=== PATIENT | female | born 1985 | race African-American/Black ===

== ENCOUNTER 2019-05-29 09:26 | Emergency (ER) | payer OTHER ==
[~2019-05-29] VITALS: Ht 165.1 cm; Wt 138.3 kg
[~2019-05-29 09:26] MED LIST: ACET-704 PO; DICY10CA53 PO; OMEP40CA5 PO; ONDA8TAB12 PO; TRAM-48 PO
[2019-05-29] MEDS ORDERED: ONDANSETRON PF 4 MG/2 ML VIAL. IV ONE (09:45)
--- NOTE | 2019-05-29 09:46 | PHYS DOC ---
Past Medical History Past Medical History: Diverticulosis Additional Past Medical Histor: RECTAL FISSURES, KIDNEY STONES, HEMORRHOIDS Past Surgical History: Additional Past Surgical Histo: dental Alcohol Use: None Drug Use: None Adult General Chief Complaint Chief Complaint: ABDOMINAL PAIN HPI HPI Patient is a 33 year old female presented to ER today for evaluation of 2 day history of nausea and vomiting, she started having severe epigastric chest pain when she woke up this morning. Patient denies any fever, no chest pain, no headache, no trouble breathing. Patient denies any vaginal bleeding or discharge. She had history of tubal ligation. ALL OTHER REVIEW OF SYSTEMS ARE NEGATIVE UNLESS OTHERWISE NOTED IN HPI Review of Systems Review of Systems SEE ABOVE Current Medications Current Medications Current Medications Medications (Trade) Dose Ordered Sig/Nikos Start Time Stop Time Status Last Admin Dose Admin Diphenhydramine HCl (Benadryl) 25 mg 1X ONCE 05/29/19 11:15 05/29/19 11:16 DC 05/29/19 11:08 25 MG Famotidine (Pepcid Vial) 20 mg 1X ONCE 05/29/19 10:45 05/29/19 10:48 DC 05/29/19 10:56 20 MG Fentanyl Citrate (Fentanyl 2ml Vial) 50 mcg 1X ONCE 05/29/19 13:00 05/29/19 13:01 DC 05/29/19 13:03 50 MCG Info (CONTRAST GIVEN -- Rx MONITORING) 1 each PRN DAILY PRN 05/29/19 10:45 05/29/19 13:40 DC Iohexol (Omnipaque 300 Mg/ml) 75 ml 1X ONCE 05/29/19 10:45 05/29/19 10:46 DC 05/29/19 11:35 75 ML Methylprednisolone Sodium Succinate (SOLU-Medrol 125MG VIAL) 125 mg 1X ONCE 05/29/19 11:15 05/29/19 11:16 DC 05/29/19 11:12 125 MG Morphine Sulfate (Morphine Sulfate) 4 mg 1X ONCE 05/29/19 10:45 05/29/19 10:48 DC 05/29/19 10:57 4 MG Multi-Ingredient Mouthwash/Gargle (Gi Cocktail) 20 ml 1X ONCE 05/29/19 13:00 05/29/19 13:01 DC 05/29/19 13:03 20 ML Ondansetron HCl (Zofran) 8 mg 1X ONCE 05/29/19 09:45 05/29/19 09:46 DC 05/29/19 10:20 8 MG Allergies Allergies Allergies Coded Allergies Type Severity Reaction Last Updated Verified Penicillins Allergy Intermediate Hives 04/22/16 Yes morphine Allergy Intermediate HIVES/ITCHING 05/29/19 Yes butorphanol Adverse Reaction Mild Anxiety 05/29/19 Yes metoclopramide Adverse Reaction Mild Anxiety 05/29/19 Yes tramadol Adverse Reaction Mild 05/29/19 Yes Physical Exam Physical Exam SEE ABOVE Constitutional: Well developed, well nourished, no acute distress, non-toxic appearance. [] HENT: Normocephalic, atraumatic, bilateral external ears normal, oropharynx moist, no oral exudates, nose normal. [] Eyes: PERRLA, EOMI, conjunctiva normal, no discharge. [] Neck: Normal range of motion, no tenderness, supple, no stridor. [] Cardiovascular:Heart rate regular rhythm, no murmur [] Lungs & Thorax: Bilateral breath sounds clear to auscultation [] Abdomen: Bowel sounds normal, soft, There is tenderness to palpation in epigastric area, no masses, no pulsatile masses. [] Skin: Warm, dry, no erythema, no rash. [] Back: No tenderness, no CVA tenderness. [] Extremities: No tenderness, no cyanosis, no clubbing, ROM intact, no edema. [] Neurologic: Alert and oriented X 3, normal motor function, normal sensory function, no focal deficits noted. [] Psychologic: Affect normal, judgement normal, mood normal. [] Current Patient Data Vital Signs Vital Signs Date Time Temp Pulse Resp B/P (MAP) Pulse Ox O2 Delivery O2 Flow Rate FiO2 05/29/19 13:17 68 13 119/76 (90) 93 Room Air 05/29/19 09:34 98.6 98.6 Lab Values Laboratory Tests Test 05/29/19 09:56 05/29/19 10:45 Urine Collection Type Void Urine Color Yellow Urine Clarity Clear Urine pH 7.0 Urine Specific [place] 1.020 Urine Protein Negative mg/dL (NEG-TRACE) Urine Glucose (UA) Negative mg/dL (NEG) Urine Ketones (Stick) Negative mg/dL (NEG) Urine Blood Negative (NEG) Urine Nitrite Negative (NEG) Urine Bilirubin Negative (NEG) Urine Urobilinogen Dipstick 0.2 mg/dL (0.2 mg/dL) Urine Leukocyte Esterase Negative (NEG) Urine RBC 0 /HPF (0-2) Urine WBC 0 /HPF (0-4) Urine Squamous Epithelial Cells Few /LPF Urine Bacteria 0 /HPF (0-FEW) POC Urine HCG, Qualitative Hcg negative (Negative) Sodium Level 140 mmol/L (136-145) Potassium Level 3.9 mmol/L (3.5-5.1) Chloride Level 103 mmol/L (98-107) Carbon Dioxide Level 26 mmol/L (21-32) Anion Gap 11 (6-14) Blood Urea Nitrogen 10 mg/dL (7-20) Creatinine 1.0 mg/dL (0.6-1.0) Estimated GFR (Cockcroft-Gault) 78.2 BUN/Creatinine Ratio 10 (6-20) Glucose Level 150 mg/dL (70-99) H Calcium Level 8.8 mg/dL (8.5-10.1) Total Bilirubin 0.2 mg/dL (0.2-1.0) Aspartate Amino Transferase (AST) 14 U/L (15-37) L Alanine Aminotransferase (ALT) 23 U/L (14-59) Alkaline Phosphatase 78 U/L (46-116) Total Protein 7.6 g/dL (6.4-8.2) Albumin 3.4 g/dL (3.4-5.0) Albumin/Globulin Ratio 0.8 (1.0-1.7) L Lipase 90 U/L (73-393) White Blood Count 10.1 x10^3/uL (4.0-11.0) Red Blood Count 4.17 x10^6/uL (3.50-5.40) Hemoglobin 11.7 g/dL (12.0-15.5) L Hematocrit 35.7 % (36.0-47.0) L Mean Corpuscular Volume 86 fL (79-100) Mean Corpuscular Hemoglobin 28 pg (25-35) Mean Corpuscular Hemoglobin Concent 33 g/dL (31-37) Red Cell Distribution Width 14.3 % (11.5-14.5) Platelet Count 487 x10^3/uL (140-400) H Neutrophils (%) (Auto) 79 % (31-73) H Lymphocytes (%) (Auto) 16 % (24-48) L Monocytes (%) (Auto) 4 % (0-9) Eosinophils (%) (Auto) 0 % (0-3) Basophils (%) (Auto) 1 % (0-3) Neutrophils # (Auto) 8.0 x10^3/uL (1.8-7.7) H Lymphocytes # (Auto) 1.6 x10^3/uL (1.0-4.8) Monocytes # (Auto) 0.4 x10^3/uL (0.0-1.1) Eosinophils # (Auto) 0.0 x10^3/uL (0.0-0.7) Basophils # (Auto) 0.1 x10^3/uL (0.0-0.2) Laboratory Tests 05/29/19 10:45 Laboratory Tests 05/29/19 09:56 EKG EKG [] Radiology/Procedures Radiology/Procedures [][facility] [address] [place] [address] IMAGING REPORT Signed PATIENT: DRAGAN MCKENZIE ACCOUNT: [id number] : 1985 LOCATION: ER AGE: 33 SEX: F EXAM STATUS: REG ER ORD. PHYSICIAN: KEVEN COMER DO REASON: abdominal pain PROCEDURE: CT ABD PELV W/ IV CONTRST ONLY EXAM: Abdomen and pelvis CT with intravenous contrast. HISTORY: Pain. TECHNIQUE: Computed tomographic images of the abdomen and pelvis were obtained following the administration of 75 cc Omnipaque 300 intravenous contrast. Multiplanar reformatting was performed. *One or more of the following individualized dose reduction techniques were utilized for this examination: 1. Automated exposure control. 2. Adjustment of the mA and/or kV according to patient size. 3. Use of iterative reconstruction technique. COMPARISON: 08/05/2015. FINDINGS: Evaluation of the lower thorax demonstrates nonspecific groundglass opacity within the left lung base, the appearance of which favors atelectasis rather than interstitial infiltrate. There is mild hepatomegaly and hepatic steatosis. No focal hepatic lesion is seen. The gallbladder is surgically absent. The pancreas, spleen, adrenal glands and kidneys are unremarkable. There is no appendicitis. There is no bowel obstruction. There is no abnormal bowel wall thickening. The urinary bladder is unremarkable. There are bilateral ovarian follicles. There is no lymphadenopathy. There is no suspicious osseous lesion. There is scarring within the lower ventral abdomen, likely due to a section. IMPRESSION: 1. No acute abdominal or pelvic finding. 2. Mild hepatomegaly and hepatic steatosis. 3. Nonspecific groundglass opacity within the left lung base, the appearance of which favors atelectasis rather than interstitial infiltrate. Electronically signed by: Sheyla Judd MD (05/29/2019 11:53 AM) [place] [id number] DICTATED and SIGNED BY: SHEYLA JUDD MD DATE: 05/29/19 2679 Course & Med Decision Making Course & Med Decision Making Pertinent Labs and Imaging studies reviewed. (See chart for details) [] Dragon Disclaimer Dragon Disclaimer This electronic medical record was generated, in whole or in part, using a voice recognition dictation system. Departure Departure Impression: Primary Impression: Abdominal pain Additional Impressions: Acute gastritis Fatty liver Disposition: HOME, SELF-CARE Condition: STABLE Referrals: ROSA HANCOCK MD (PCP) please follow up with your family doctor next week for a referral to a GI specialist. Patient Instructions: Abdominal Migraine, Gastritis, Adult Scripts Sucralfate (CARAFATE) 1 Gm Tablet 1 TAB PO QID for 14 Days, #56 TAB Prov: KEVEN COMER DO 05/29/19 Omeprazole Magnesium (PRILOSEC OTC) 20 Mg Tablet.dr 40 MG PO DAILY for 30 Days, #60 TAB Prov: KEVEN COMER DO 05/29/19 Problem Qualifiers KEVEN COMER DO May 29, 2019 09:46
[2019-05-29 10:07] LABS: BILIRUBIN,URINE NEGATIVE (NEG); COLOR,URINE YELLOW; NITRITE,URINE NEGATIVE (NEG); PROTEIN,URINE NEGATIVE (NEG-TRACE); UROBILINOGEN,URINE 0.2 mg/dL (0.2 mg/dL)
[2019-05-29 10:14] LABS: BACTERIA,URINE 0 /HPF (0-FEW); RBC,URINE 0 /HPF (0-2); SQUAMOUS EPITHELIAL CELL,UR FEW /LPF; WBC,URINE 0 /HPF (0-4)
[2019-05-29 10:15] LABS: CALCIUM 8.8 mg/dL (8.5-10.1); GFR 78.2; POTASSIUM 3.9 mmol/L (3.5-5.1)
[2019-05-29 10:16] LABS: CLARITY,URINE CLEAR
[2019-05-29 10:21] LABS: ALBUMIN 3.4 g/dL (3.4-5.0); ALBUMIN/GLOBULIN RATIO 0.8 (1.0-1.7); TOTAL BILIRUBIN 0.2 mg/dL (0.2-1.0); TOTAL PROTEIN 7.6 g/dL (6.4-8.2)
[2019-05-29] MEDS ORDERED: MORPHINE SULFATE 4 MG/ML VIAL. IV ONE (10:45)
[2019-05-29] MEDS ORDERED: IOHEXOL 300 MG/ML 100ML VIAL. IV ONE (10:45)
[2019-05-29] MEDS ORDERED: FAMOTIDINE 20 MG/2 ML VIAL IVP ONE (10:45)
[2019-05-29] MEDS ORDERED: CONTRAST GIVEN. MC PRN (10:45)
[2019-05-29] MEDS ORDERED: diphenhydrAMINE 50 MG/ML VIAL IVP ONE (11:15)
[2019-05-29] MEDS ORDERED: fentaNYL PF VIAL 100 MCG/2 ML VIAL IV ONE ×2 (11:15→13:00)
[2019-05-29] MEDS ORDERED: methylPREDNISolone SOD SUCC PF 125 MG/2 ML VIAL. IV ONE (11:15)
[2019-05-29 11:20] LABS: BASO # 0.1 x10^3/uL (0.0-0.2); BASO % 1 % (0-3); EOS % 0 % (0-3); HEMATOCRIT 35.7 % (36.0-47.0); HEMOGLOBIN 11.7 g/dL (12.0-15.5); LYMPH # 1.6 x10^3/uL (1.0-4.8); LYMPH % 16 % (24-48); MEAN CORPUSCULAR HEMOGLOBIN 28 pg (25-35); MEAN CORPUSCULAR HGB CONC 33 g/dL (31-37); MEAN CORPUSCULAR VOLUME 86 fL (79-100); MONO # 0.4 x10^3/uL (0.0-1.1); MONO % 4 % (0-9); NEUT % 79 % (31-73); PLATELET COUNT 487 x10^3/uL (140-400); RED BLOOD COUNT 4.17 x10^6/uL (3.50-5.40); RED CELL DISTRIBUTION WIDTH 14.3 % (11.5-14.5); WHITE BLOOD COUNT 10.1 x10^3/uL (4.0-11.0)
--- NOTE | 2019-05-29 11:56 | RAD ---
EXAM: Abdomen and pelvis CT with intravenous contrast. HISTORY: Pain. TECHNIQUE: Computed tomographic images of the abdomen and pelvis were obtained following the administration of 75 cc Omnipaque 300 intravenous contrast. Multiplanar reformatting was performed. *One or more of the following individualized dose reduction techniques were utilized for this examination: 1. Automated exposure control. 2. Adjustment of the mA and/or kV according to patient size. 3. Use of iterative reconstruction technique. COMPARISON: 08/05/2015. FINDINGS: Evaluation of the lower thorax demonstrates nonspecific groundglass opacity within the left lung base, the appearance of which favors atelectasis rather than interstitial infiltrate. There is mild hepatomegaly and hepatic steatosis. No focal hepatic lesion is seen. The gallbladder is surgically absent. The pancreas, spleen, adrenal glands and kidneys are unremarkable. There is no appendicitis. There is no bowel obstruction. There is no abnormal bowel wall thickening. The urinary bladder is unremarkable. There are bilateral ovarian follicles. There is no lymphadenopathy. There is no suspicious osseous lesion. There is scarring within the lower ventral abdomen, likely due to a section. IMPRESSION: 1. No acute abdominal or pelvic finding. 2. Mild hepatomegaly and hepatic steatosis. 3. Nonspecific groundglass opacity within the left lung base, the appearance of which favors atelectasis rather than interstitial infiltrate. Electronically signed by: Sheyla Esteban MD (05/29/2019 11:53 AM) [facility]
[2019-05-29] MEDS ORDERED: LIDO:MAALOX 1:1 20 ML SINGLE DOSE. SWSW ONE (13:00)
[2019-05-29 13:17] VITALS: BP 119/76
[2019-05-29] MEDS ORDERED: OMEP20TA63 PO (13:20)
[2019-05-29] MEDS ORDERED: SUCR1TAB35 PO (13:20)
== END 2019-05-29 13:33 | disposition home or self-care (01) ==
LOC: ER 09:26
DX: K29.00 Acute gastritis without bleeding (principal); K76.0 Fatty (change of) liver, not elsewhere classified; Z87.442 Personal history of urinary calculi; Z98.890 Other specified postprocedural states; Z88.0 Allergy status to penicillin; Z88.5 Allergy status to narcotic agent; Z88.6 Allergy status to analgesic agent; Z88.8 Allergy status to other drugs, medicaments and biological substances
CPT/HCPCS: 36415; 74177; 80053; 81001; 81025; 83690; 85025; 96374; 96375; 96376; 99285; J1200; J2270; J2405; J2930; J3010; J3490; Q9967